=== PATIENT | male | born 1950 | race Caucasian/White ===

== ENCOUNTER 2017-02-26 18:46 | Inpatient (IN) | payer MEDICARE ==
[~2017-02-26] VITALS: Ht 167.6 cm; Wt 78.5 kg
--- NOTE | 2017-02-26 19:09 | NUR ---
PT BIBFAMILY C/O SUDDEN ONSET CHEST PAIN, PRESSURE LIKE, NON RADIATING X 20 MINS. PT AOX3 RR EVEN AND UNLABORED. NO SOB NOTED. NAD NOTED. NO NVD AT THIS TIME. PT GOWNED AND PLACED ON MONTIOR. PT WAITING FOR MD MO. IV STARTED ON LEFT AC 18G, GOOD BLOOD RETURNED, BLOOD COLLECTED. SENT TO LAB.
--- NOTE | 2017-02-26 19:10 | NUR ---
PT DENIES CP AT THIS TIME.
[2017-02-26 19:23] LABS: BASOPHILS # (AUTO) 0.1 /CMM (0.0-0.2); BASOPHILS % (AUTO) 1.2 % (0.0-2.0); EOSINOPHILS # (AUTO) 0.3 /CMM (0.0-0.7); HEMATOCRIT 44 % (39-51); HEMOGLOBIN 14.7 g/dL (13.5-17.5); LYMPHOCYTES # (AUTO) 1.9 /CMM (0.8-4.8); LYMPHOCYTES % (AUTO) 28.8 % (20.0-44.0); MEAN CORPUSCULAR HEMOGLOBIN 32 PG (26.0-33.0); MEAN CORPUSCULAR HGB CONC 34 g/dl (31.0-36.0); MEAN CORPUSCULAR VOLUME 94 fL (80-96); MONOCYTES # (AUTO) 0.7 /CMM (0.1-1.30); MONOCYTES % (AUTO) 11.3 % (2.0-12.0); NEUTROPHILS # (AUTO) 3.4 /CMM (1.8-8.9); NEUTROPHILS % (AUTO) 54.7 % (43.0-81.0); PLATELET COUNT (AUTO) 190 /CMM (150-450); RDW COEFFICIENT OF VARIATION 12.5 (11.5-15.0); RED BLOOD CELL COUNT(AUTO) 4.67 MIL/uL (4.5-6.0); WHITE BLOOD COUNT (AUTO) 6.4 K/uL (4.3-11.0)
--- NOTE | 2017-02-26 19:26 | NUR ---
RADIOLOGY AT BEDSIDE FOR CXR
--- NOTE | 2017-02-26 19:32 | NUR ---
DR. STREET AT BEDSIDE FOR EVAL.
[2017-02-26 19:43] LABS: TROPONIN I 0.017 ng/mL (0.00-0.056)
--- NOTE | 2017-02-26 19:46 | NUR ---
CALLED NURSING SUP. FOR TELE BED
--- NOTE | 2017-02-26 19:46 | NUR ---
JANES MORALES, VALERIE DOBBS NP CERTIFIED ETHICAL HACKER
[2017-02-26 19:47] LABS: INR 0.89 (0.87-1.13); PROTHROMBIN TIME 9.3 SECS (9.5-12.7)
[2017-02-26 19:48] LABS: ALBUMIN 3.6 g/dL (3.4-5.0); BILIRUBIN,TOTAL 0.3 mg/dL (0.2-1.0); CALCIUM, SERUM 9.3 mg/dL (8.5-10.1); CREATININE 1.2 mg/dL (0.6-1.3); TOTAL PROTEIN, SERUM 7.6 g/dL (6.4-8.2)
[2017-02-26] MEDS ORDERED: ASPIRIN 81 MG TAB.CHEW ONE (19:48)
[2017-02-26] MEDS ORDERED: ASPIRIN 81 MG TAB.CHEW PO ONE (20:00)
--- NOTE | 2017-02-26 20:03 | NUR ---
PT ASSIGNED TO TELE 110
--- NOTE | 2017-02-26 20:18 | NUR ---
REPORT GIVEN TO SADIA BAUTISTA FOR ANGELICA
[2017-02-26] MEDS ORDERED: AZIL40TA PO (20:24)
[2017-02-26] MEDS ORDERED: DAPA10TA PO (20:24)
[2017-02-26] MEDS ORDERED: METO50TA3 PO (20:24)
[2017-02-26] MEDS ORDERED: [UNRECOGNIZED DRUG - CODE] PO (20:24)
[2017-02-26] MEDS ORDERED: RIVA10TA PO (20:24)
[2017-02-26] MEDS ORDERED: EZET1TAB7 PO (20:24)
[2017-02-26] MEDS ORDERED: MECLIZINE HCL 12.5 MG TABLET ONE (20:40)
[2017-02-26] MEDS ORDERED: MECLIZINE HCL 12.5 MG TABLET PO ONE (21:00)
[2017-02-26 21:15] VITALS: BP 123/99
--- NOTE | 2017-02-26 21:17 | NUR ---
PT TRANSFERRED PER ACLS PROTOCOL
--- NOTE | 2017-02-26 21:20 | NUR ---
MACHINE BOSS RCD PT FROM ER DX CHEST PAIN; PT AFIB ON MONITOR; ON ROOM AIR CLEAR BREATH SOUNDS. SKIN INTACT. PT DENIES CHEST PAIN OR DIZZINESS AT THIS TIME. FAMILY AT BEDSIDE. PENDING ADMISSION ORDERS.
--- NOTE | 2017-02-26 22:20 | NUR ---
POCKET GRINDER OPERATOR CALL PLACED TO [facility] FOR ADMISSION ORDERS.
[2017-02-26] MEDS ORDERED: ACETAMINOPHEN 325 MG TABLET PO PRN (22:30)
[2017-02-26] MEDS ORDERED: Z GUARD REMEDY 2 OZ OINT TP PRN (22:30)
[2017-02-26] MEDS ORDERED: MAGNESIUM HYDROXIDE 30 ML UDC PO PRN (22:30)
[2017-02-26] MEDS ORDERED: ZOLPIDEM TARTRATE 5 MG TABLET PO PRN (22:30)
[2017-02-26] MEDS ORDERED: DEXTROSE 50%-WATER 50 ML DISP.SYRIN IV PRN (22:30)
[2017-02-26] MEDS ORDERED: HYDROCODONE/APAP 5/325MG 1 EACH TABLET PO PRN (22:30)
[2017-02-26] MEDS ORDERED: ONDANSETRON HCL/PF 4 MG/2 ML VIAL IVP PRN (22:30)
--- NOTE | 2017-02-26 22:35 | NUR ---
DIE CASTING MACHINE SETTER RCD ADMISSION ORDERS; DISCUSSED PLAN OF CARE WITH PT; VERBALIZES UNDERSTANDING. CONTINUE TO MONITOR.
[2017-02-27] VITALS (7 sets, daily range): BP systolic 104–120; BP diastolic 64–89
--- NOTE | 2017-02-27 | NUR ---
ESCALATOR MECHANIC PT SLEEPING AT THIS TIME; FAMILY REMAINS AT BEDSIDE.
--- NOTE | 2017-02-27 02:00 | NUR ---
REHAB LIAISON PT YAEL CHEST PAIN OR DIZZINESS; CONTINUE TO MONITOR.
--- NOTE | 2017-02-27 03:44 | NUR ---
ROLLED HAM LACER ASSISTED PT TO RESTROOM; DENIES DIZZINESS OR CHEST PAIN. CONTINUE TO MONITOR.
--- NOTE | 2017-02-27 07:45 | NUR ---
Tele/RN - Initial Notes Received pt in bed, alert and oriented x4. Denies chest pain. Denies pain or discomfort. Denies dizziness at this time. Afib 68 on tele monitor. IV saline locked patent and intact. Ambulatory with steady gait. Safety and comfort measures in place. Will continue to monitor pt closely.
[2017-02-27 07:47] LABS: BASOPHILS % (AUTO) 0.7 % (0.0-2.0); EOSINOPHILS # (AUTO) 0.3 /CMM (0.0-0.7); HEMATOCRIT 42 % (39-51); HEMOGLOBIN 13.8 g/dL (13.5-17.5); LYMPHOCYTES # (AUTO) 1.9 /CMM (0.8-4.8); MEAN CORPUSCULAR HEMOGLOBIN 31 PG (26.0-33.0); MEAN CORPUSCULAR HGB CONC 33 g/dl (31.0-36.0); MEAN CORPUSCULAR VOLUME 95 fL (80-96); MONOCYTES # (AUTO) 0.8 /CMM (0.1-1.30); MONOCYTES % (AUTO) 11.3 % (2.0-12.0); NEUTROPHILS # (AUTO) 3.6 /CMM (1.8-8.9); PLATELET COUNT (AUTO) 160 /CMM (150-450); RDW COEFFICIENT OF VARIATION 13.1 (11.5-15.0); RED BLOOD CELL COUNT(AUTO) 4.41 MIL/uL (4.5-6.0); WHITE BLOOD COUNT (AUTO) 6.7 K/uL (4.3-11.0)
[2017-02-27 07:57] LABS: CALCIUM, SERUM 8.5 mg/dL (8.5-10.1); PHOSPHORUS 3.4 mg/dL (2.5-4.9); POTASSIUM 3.9 mmol/L (3.5-5.1)
--- NOTE | 2017-02-27 08:10 | NUR ---
Tele/RN - Notes Pt seen and examined by Dr Benoit at bedside.
[2017-02-27] MEDS: BLOOD SUGAR DIAGNOSTIC 1 EACH STRIP IN SCH ×4 (08:17→22:11)
[2017-02-27] MEDS: INSULIN REGULAR, HUMAN 100 UNIT/ML 3 ML VIAL SQ PRN ×4 (08:21→22:11)
[2017-02-27] MEDS: LOSARTAN POTASSIUM 50 MG TABLET PO SCH (09:18)
[2017-02-27] MEDS: ASPIRIN 81 MG TAB.CHEW PO SCH (09:18)
--- NOTE | 2017-02-27 10:50 | NUR ---
Tele/RN - Notes Stroke teaching and NIH Stroke Scale, and swallow screening completed at bedside. Pt able to swallow with no issues. Examined by Dr Barton at bedside. MD aware of negative findings.
--- NOTE | 2017-02-27 12:10 | NUR ---
Tele/RN - Notes Pt's Cardiology report obtained and placed in chart.
--- NOTE | 2017-02-27 12:20 | NUR ---
Tele/RN - Notes Per pt's son, Pt does not take Azilsartan Medoxomil (Edarbi) anymore. Will notify Pharmacy.
--- NOTE | 2017-02-27 14:05 | NUR ---
Tele/RN - Notes Pt seen and examined by Dr Lomax at bedside.
[2017-02-27] MEDS ORDERED: RIVAROXABAN 10 MG TABLET PO SCH (17:00)
--- NOTE | 2017-02-27 19:15 | NUR ---
RN INITIAL NOTES RECEIVED PATIENT AWAKE AND ALERT X4. PATIENT DENIES ANY PAIN AND DISCOMFORT. ON ROOM AIR WITH NO DISTRESS. PATIENT SR WITH 1ST DEGREE AVB AND OCCASIONAL PVC WITH HR OF 78. PER PIANO REGULATOR, PATIENT CONVERTED AT 1820 FROM AFIB. PATIENT WITH NO WEAKNESS NOTED, CLEAR SPEECH, NO DIFFICULTY SWALLOWING OBSERVED, WITH STEADY GAIT NOTED. PATIENT'S NEEDS ANTICIPATED AND MET. SAFETY AND COMFORT ENSURED. BED IN LOW AND LOCKED POSITION. CALL LIGHT IN REACH. WILL MONITOR.
[2017-02-27] MEDS ORDERED: AZIL40TA PO (21:01)
[2017-02-27] MEDS ORDERED: SAXA5TAB PO (21:01)
[2017-02-27] MEDS ORDERED: METOPROLOL TARTRATE 50 MG TABLET PO SCH (22:00)
[2017-02-27] MEDS ORDERED: CHOLECALCIFEROL 1,000 UNIT TABLET (VIT D3) PO SCH (22:00)
[2017-02-27] MEDS ORDERED: ATORVASTATIN 10 MG TABLET PO SCH (22:00)
[2017-02-28] VITALS: BP 120/80
[2017-02-28 04:00] VITALS: BP 120/82
--- NOTE | 2017-02-28 05:18 | NUR ---
RN NOTES PATIENT'S DAUGHTER AT BEDSIDE AND BROUGHT IN PATIENT'S MEDICATIONS FROM HOME. MEDICATIONS REVIEWED WITH THE CURRENT MEDICATION RECONCILIATION FILED IN CHART. AMONGST THE MEDICATION BOTTLES BROUGHT IN ARE: Onglyza 2.5mg Daily, and Azilsartan Medoximil 40mg every evening with medication instruction to STOP when taking Cozaar and/or Norvasc. UPDATED MEDICATION RECONCILIATION ON [facility]. WILL ENDORSE ACCORDINGLY FOR F/UP.
--- NOTE | 2017-02-28 07:30 | NUR ---
RN NOTES RECEIVED PATIENT RESTING IN BED, AROUSABLE TO VERBAL AND TACTILE STIMULI. ALERT ORIENTED X4. ON RA ELPIDIO WELL. PATIENT DENIES ANY PAIN AND DISCOMFORT. NO DISTRESS NOTED. PATIENT SR WITH 1ST DEGREE AVB OCCASIONAL PVC ON TELE MONITOR. NO FACIAL DROOP, NO WEAKNESS NOTED, SPEECH IS CLEAR, ABLE TO MOVE ALL EXTREMITIES. PATIENT'S NEEDS ATTENDED. PLAN OF CARE DISCUSSED WITH PT, SAFETY AND COMFORT ENSURED. BED IN LOW AND LOCKED POSITION. CALL LIGHT IN REACH. WILL MONITOR.
[2017-02-28 07:48] LABS: BASOPHILS % (AUTO) 0.4 % (0.0-2.0); EOSINOPHILS # (AUTO) 0.4 /CMM (0.0-0.7); HEMATOCRIT 41 % (39-51); HEMOGLOBIN 13.8 g/dL (13.5-17.5); LYMPHOCYTES # (AUTO) 1.7 /CMM (0.8-4.8); MEAN CORPUSCULAR HEMOGLOBIN 32 PG (26.0-33.0); MEAN CORPUSCULAR HGB CONC 34 g/dl (31.0-36.0); MEAN CORPUSCULAR VOLUME 93 fL (80-96); MONOCYTES # (AUTO) 0.8 /CMM (0.1-1.30); MONOCYTES % (AUTO) 12.4 % (2.0-12.0); NEUTROPHILS # (AUTO) 3.3 /CMM (1.8-8.9); NEUTROPHILS % (AUTO) 53.2 % (43.0-81.0); PLATELET COUNT (AUTO) 172 /CMM (150-450); RED BLOOD CELL COUNT(AUTO) 4.39 MIL/uL (4.5-6.0); WHITE BLOOD COUNT (AUTO) 6.1 K/uL (4.3-11.0)
[2017-02-28 08:00] VITALS: BP 106/74
[2017-02-28 08:12] LABS: CALCIUM, SERUM 8.3 mg/dL (8.5-10.1); CREATININE 0.9 mg/dL (0.6-1.3); MAGNESIUM 1.7 mg/dL (1.8-2.4); PHOSPHORUS 3.4 mg/dL (2.5-4.9); POTASSIUM 4.1 mmol/L (3.5-5.1)
--- NOTE | 2017-02-28 08:30 | NUR ---
RN NOTES STROKE EDUCATION GIVEN. PT VERBALIZED UNDERSTANDING
[2017-02-28] MEDS: ASPIRIN 81 MG TAB.CHEW PO SCH (09:07)
[2017-02-28] MEDS: LOSARTAN POTASSIUM 50 MG TABLET PO SCH (09:07)
[2017-02-28] MEDS: INSULIN REGULAR, HUMAN 100 UNIT/ML 3 ML VIAL SQ PRN ×2 (09:12→12:45)
[2017-02-28] MEDS: BLOOD SUGAR DIAGNOSTIC 1 EACH STRIP IN SCH ×2 (09:12→12:29)
[2017-02-28] MEDS ORDERED: MAGNESIUM OXIDE 400 MG TABLET PO ONE (11:30)
[2017-02-28 12:00] VITALS: BP 107/75
[2017-02-28] MEDS ORDERED: APIX5TAB PO (12:32)
[2017-02-28] MEDS ORDERED: GLIP5TAB26 PO (12:32)
[2017-02-28] MEDS ORDERED: METF100P3 MC (12:32)
--- NOTE | 2017-02-28 12:50 | NUR ---
RN NOTES DR DONOVAN AT BEDSIDE, PER MD PT CAN GO HOME TODAY AND SHE WILL PRESCRIBED SOME NEW MEDS.
--- NOTE | 2017-02-28 14:55 | NUR ---
RN NOTES PT DISCHARGED FROM UNIT IN STABLE CONDITION, PT ABLE TO AMBULATE WITHOUT ASSISTANCE, ACCOMPANIED BY FAMILY MEMBER TRANSPORTED TO HOME VIA PRIVATE CAR. ALL DISCHARGE INSTRUCTIONS GIVEN, EXITCARE PROVIDED. PRESCRIPTIONS GIVEN. PT REMINDED OF THE SCHEDULED FOLLOW UP APPOINTMENTS WITH MD, PT VERBALIZED UNDERSTANDING. PRESCRIPTION FA[facility]ED TO [facility] PER PT REQUEST. PAPERWORK SIGNED BY PT, COPIES PROVIDED. ID BAND REMOVED, IV SITE REMOVED, COVERED WITH DRY DRESSING, NOTED WITH SWELLING, WARM COMPRESS APPLIED. ALL BELONGINGS SENT WITH THE PT.
== END 2017-02-28 14:49 | disposition home health service (06) | DRG 69 ==
LOC: ER 18:48 → EDBD 18:48 → TELE1 20:34
PROVIDERS: ADMIT Nurse Practitioner Acute Care; ATTEND Nurse Practitioner Acute Care
DX: G45.9 Transient cerebral ischemic attack, unspecified (principal); I50.33 Acute on chronic diastolic (congestive) heart failure; D68.59 Other primary thrombophilia; I48.0 Paroxysmal atrial fibrillation; E11.65 Type 2 diabetes mellitus with hyperglycemia; I11.0 Hypertensive heart disease with heart failure; E78.5 Hyperlipidemia, unspecified
CPT/HCPCS: 36415; 70450-TC; 71010-TC; 80048-TC; 80061-TC; 80076-TC; 82962-TC; 83735-TC; 83880; 84100-TC; 84484-TC; 85025-TC; 85730-TC; 87081-TC; 92521; 93307-TC; 93880-TC; A4606; A6403; J1815; J8597; Z7610

== ENCOUNTER 2017-03-05 19:57 | Inpatient (IN) | payer MEDICARE ==
[~2017-03-05] VITALS: Ht 167.6 cm; Wt 75.7 kg
[~2017-03-05 19:57] MED LIST: APIX5TAB PO; AZIL40TA PO; DAPA10TA PO; EZET1TAB7 PO; GLIP5TAB26 PO; METF100P3 MC; METO50TA3 PO; SAXA5TAB PO; [UNRECOGNIZED DRUG - CODE] PO
--- NOTE | 2017-03-05 20:20 | NUR ---
PT A/OX4 BREATHING EFFORTLESSLY ON ROOM AIR, PT STATES HE STARTED TO HAVE NUMBNESS ON HIS LEFT ARM AND LEG SINCE YESTERDAY EVENING, PT IS AT BEDSIDE, IV PLACED, PT ON MONITOR, IN GOWN, NAD NOTED, MD JHOAN MADE AWARE, PT AT BEDSIDE WILL CONTINUE TO MONITOR.
[2017-03-05 20:31] LABS: BASOPHILS % (AUTO) 0.6 % (0.0-2.0); EOSINOPHILS # (AUTO) 0.3 /CMM (0.0-0.7); EOSINOPHILS % (AUTO) 4.5 % (0.0-6.0); HEMATOCRIT 44 % (39-51); HEMOGLOBIN 14.8 g/dL (13.5-17.5); LYMPHOCYTES # (AUTO) 1.9 /CMM (0.8-4.8); LYMPHOCYTES % (AUTO) 27.3 % (20.0-44.0); MEAN CORPUSCULAR HEMOGLOBIN 31 PG (26.0-33.0); MEAN CORPUSCULAR HGB CONC 34 g/dl (31.0-36.0); MEAN CORPUSCULAR VOLUME 93 fL (80-96); MONOCYTES # (AUTO) 0.9 /CMM (0.1-1.30); MONOCYTES % (AUTO) 12.4 % (2.0-12.0); NEUTROPHILS # (AUTO) 3.8 /CMM (1.8-8.9); NEUTROPHILS % (AUTO) 55.2 % (43.0-81.0); PLATELET COUNT (AUTO) 187 /CMM (150-450); RED BLOOD CELL COUNT(AUTO) 4.72 MIL/uL (4.5-6.0); WHITE BLOOD COUNT (AUTO) 6.9 K/uL (4.3-11.0)
[2017-03-05 20:45] LABS: CALCIUM, SERUM 9.1 mg/dL (8.5-10.1); POTASSIUM 3.9 mmol/L (3.5-5.1)
[2017-03-05 20:48] LABS: INR 0.9 (0.87-1.13); PROTHROMBIN TIME 9.4 SECS (9.5-12.7)
[2017-03-05 20:53] LABS: TROPONIN I 0.018 ng/mL (0.00-0.056)
--- NOTE | 2017-03-05 21:11 | NUR ---
PAGED DR AYALA FOR PANEL ADMISSION
[2017-03-05] MEDS ORDERED: ASPIRIN 325 MG TABLET PO ONE (21:30)
[2017-03-05] MEDS ORDERED: ONDANSETRON HCL/PF 4 MG/2 ML VIAL IVP PRN (21:30)
[2017-03-05] MEDS ORDERED: HYDROCODONE/APAP 5/325MG 1 EACH TABLET PO PRN (21:30)
[2017-03-05] MEDS ORDERED: MAG HYDROX/AL HYDROX/SIMETH 30 ML UDC PO PRN (21:30)
[2017-03-05] MEDS ORDERED: ACETAMINOPHEN 325 MG TABLET PO PRN (21:30)
[2017-03-05] MEDS ORDERED: Z GUARD REMEDY 2 OZ OINT TP PRN (21:30)
[2017-03-05] MEDS ORDERED: MAGNESIUM HYDROXIDE 30 ML UDC PO PRN (21:30)
[2017-03-05] MEDS ORDERED: ENOXAPARIN SODIUM 40 MG/0.4 ML DISP.SYRIN SQ SCH (21:30)
[2017-03-05] MEDS ORDERED: *INSULIN REGULAR(HUMULIN R)HUM 100 UNIT/ML VIAL SQ PRN (21:30)
[2017-03-05] MEDS ORDERED: DEXTROSE 50%-WATER 50 ML DISP.SYRIN IV PRN (21:30)
[2017-03-05] MEDS ORDERED: MORPHINE SULFATE INJ 2 MG/ML DISP.SYRIN IV PRN (21:30)
[2017-03-05] MEDS ORDERED: ZOLPIDEM TARTRATE 5 MG TABLET PO PRN (21:30)
[2017-03-05] MEDS ORDERED: ASPIRIN 325 MG TABLET ONE (21:59)
[2017-03-05 22:00] VITALS: BP 139/84
[2017-03-05] MEDS ORDERED: Medication Not On Formulary EA (Ezetimibe/Simvastatin (Vytorin 10-40 Mg Tablet) 1 TAB) PO SCH (22:00)
[2017-03-05 22:05] VITALS: BP 139/84
--- NOTE | 2017-03-05 22:30 | NUR ---
RIGHT OF WAY APPRAISER INITIAL NOTE PT RECEIVED IN NO ACUTE DISTRESS AT THIS MOMENT. A/O X4 AND ABLE TO MAKE NEEDS KNOWN. ON TELE WITH SR W/ PVC'S AT THE MOMENT. FAMILY IS AT BEDSIDE. PT HAS ADEQUATE BREATHING PATTERN WITH NORMAL CHEST RISE/FALL. LUNG SOUNDS ARE CLEAR. PT IS ABLE TO WALK TO BATHROOM WITH STANDBY ASSISTANCE. 18G RIGHT HAND IS PATENT CLEAN AND DRY. COMFORT AND SAFETY MEASURES TO BE PLACED DURING THE SHIFT. WILL CONTINUE TO MONITOR FOR ANY CHANGES DURING THE SHIFT.
[2017-03-05] MEDS: BLOOD SUGAR DIAGNOSTIC 1 EACH STRIP VI SCH (22:42)
[2017-03-05] MEDS ORDERED: ENOXAPARIN SODIUM 40 MG/0.4 ML DISP.SYRIN SQ ONE (22:44)
[2017-03-05] MEDS ORDERED: METOPROLOL TARTRATE 50 MG TABLET ONE (22:45)
[2017-03-05] MEDS: INSULIN REGULAR, HUMAN 100 UNIT/ML 3 ML VIAL SQ PRN (22:46)
[2017-03-05] MEDS: METOPROLOL TARTRATE 50 MG TABLET PO SCH (22:47)
[2017-03-06] VITALS (9 sets, daily range): BP systolic 96–154; BP diastolic 65–90
[2017-03-06 03:46] LABS: BASOPHILS % (AUTO) 0.4 % (0.0-2.0); EOSINOPHILS # (AUTO) 0.4 /CMM (0.0-0.7); EOSINOPHILS % (AUTO) 5.2 % (0.0-6.0); HEMATOCRIT 42 % (39-51); HEMOGLOBIN 13.9 g/dL (13.5-17.5); LYMPHOCYTES # (AUTO) 1.9 /CMM (0.8-4.8); MEAN CORPUSCULAR HEMOGLOBIN 31 PG (26.0-33.0); MEAN CORPUSCULAR HGB CONC 33 g/dl (31.0-36.0); MEAN CORPUSCULAR VOLUME 94 fL (80-96); MONOCYTES # (AUTO) 0.9 /CMM (0.1-1.30); MONOCYTES % (AUTO) 12.7 % (2.0-12.0); NEUTROPHILS # (AUTO) 4.1 /CMM (1.8-8.9); NEUTROPHILS % (AUTO) 55.7 % (43.0-81.0); PLATELET COUNT (AUTO) 180 /CMM (150-450); RED BLOOD CELL COUNT(AUTO) 4.49 MIL/uL (4.5-6.0); WHITE BLOOD COUNT (AUTO) 7.4 K/uL (4.3-11.0)
[2017-03-06 04:00] LABS: MAGNESIUM 2.1 mg/dL (1.8-2.4); PHOSPHORUS 3.6 mg/dL (2.5-4.9); POTASSIUM 4.1 mmol/L (3.5-5.1)
--- NOTE | 2017-03-06 05:41 | NUR ---
BONE DRIER OPERATOR CLOSING NOTE PT REMAINS IN NO ACUTE DISTRESS AT THIS TIME. FAMILY AT BEDSIDE OVER NIGHT. NO CHEST PAIN REPORTED DURING THE SHIFT. PT ABLE TO GET UP TO GO TO RESTROOM WITH STANDBY ASSISTANCE. ALL DUE MEDICATIONS GIVEN ORDERED AND TOLERATED WELL. COMFORT AND SAFETY MEASURES CARRIED OUT DURING THE SHIFT. WILL ENDORSE CARE TO AM NURSE.
[2017-03-06] MEDS: BLOOD SUGAR DIAGNOSTIC 1 EACH STRIP VI SCH ×2 (07:06→12:28)
[2017-03-06] MEDS: INSULIN REGULAR, HUMAN 100 UNIT/ML 3 ML VIAL SQ PRN ×2 (07:07→17:43)
--- NOTE | 2017-03-06 07:45 | NUR ---
Tele/RN - Notes Pt received awake and alert x4. Denies chest pain and/or pain at this time. Complains of dizziness. On tele reading 1st degree AV block with BBB 69. Continent. Ambulatory with steady gait. IV saline locked patent and intact. Safety and comfort measures in place. Will continue to monitor pt closely.
--- NOTE | 2017-03-06 08:15 | NUR ---
Tele/RN - Notes Dr Benoit at bedside for evaluation, with new orders received for CT Angiogram Heart, brain and carotid. Per Radiology, will do CTA heart today, and CTA brain and carotid tomorrow morning.
[2017-03-06] MEDS: DOCUSATE SODIUM 100 MG CAPSULE PO SCH ×2 (09:00→17:00)
[2017-03-06] MEDS ORDERED: APIXABAN 5 MG TABLET PO SCH (09:00)
[2017-03-06] MEDS ORDERED: ASPIRIN 325 MG TABLET PO SCH (09:00)
[2017-03-06] MEDS: PANTOPRAZOLE 40 MG TABLET.DR PO SCH (09:18)
--- NOTE | 2017-03-06 10:50 | NUR ---
Tele/RN - Notes Dr Lomax (Neurology) at bedside for evaluation. Received orders for IVF for pt's complaints of dizziness. MD also ordered MRI brain. Will carry out.
[2017-03-06] MEDS: IV NS 0.9% 1,000 ML IV PRN ×2 (11:00→22:20)
[2017-03-06] MEDS ORDERED: CT SWABBABLE VALVE TRANS SET 1 EA INFUS.SET MC ONE (11:15)
[2017-03-06] MEDS ORDERED: IOHEXOL-350 100 ML VIAL IV ONE (11:15)
[2017-03-06] MEDS ORDERED: IV NS 0.9% 250 ML IV ONE (11:15)
[2017-03-06] MEDS ORDERED: METOPROLOL TARTRATE INJ 5 MG/5 ML AMPUL IVP ONE (11:30)
[2017-03-06] MEDS ORDERED: NITROGLYCERIN 4.9 GM SPRAY SL ONE (11:30)
--- NOTE | 2017-03-06 11:30 | NUR ---
PT TO CT FOR CT ANGIO - CONSENT FORM SIGNED BY PT. PROTOCOL SHEET UTILIZED
--- NOTE | 2017-03-06 11:30 | NUR ---
ICU/RN - Notes Pt taken to radiology by wheelchair for CT Angiogram of heart via ACLS protocol, accompanied by SADIA Larsen and jose luis Maria. Metoprolol IVP and NGT [place] to be given by SADIA Larsen per CT Angiogram protocol.
--- NOTE | 2017-03-06 11:30 | NUR ---
HR 82- METOPROLOL 5 MG SIVP ADMINISTERED. VSS A DENIES CHEST PAIN/SOB, DYSPNEA. REPORTS HE IS COMFORTABLE. PROCEDURE EXPLAINED TO PT . ALL QUESTIONS ANSWERED.
[2017-03-06] MEDS ORDERED: METOPROLOL TARTRATE INJ 5 MG/5 ML AMPUL ONE (11:34)
--- NOTE | 2017-03-06 11:57 | NUR ---
PT IN CT , ON MONITOR. HR 62
--- NOTE | 2017-03-06 12:04 | NUR ---
PROCEDURE IN PROGRESS. CONT TO DENY ANY MEDICAL COMPLAINTS. AIRWAY PATENT. VSS. HR 61
--- NOTE | 2017-03-06 12:08 | NUR ---
NITROGLYCERIN 0.4 MG SL. ADMINSITERED.
--- NOTE | 2017-03-06 12:10 | NUR ---
PROCEDURE COMPLETED. VSS. PT STS " I FEEL A LITTLE BIT DIZZY". PT REMAINS IN CT BED PRIOR FOR MONITORING PRIOR TRANSFER BACK TO UNIT.
--- NOTE | 2017-03-06 12:23 | NUR ---
HEADPAIN RESOLVED- EXPLAINED TO PT POSSIBLE CAUSE D/T NTG. NO CONCERNS AT THIS TIME. BACK FROM CT. ON MONITOR.
--- NOTE | 2017-03-06 12:30 | NUR ---
Tele/RN - Notes Pt back from CT, reconnected to IVF for complaints of dizziness (Per Dr Lomax). Lunch offered, pt not hungry at this time. Awaiting MRI brain w/o contrast. at bedside.
--- NOTE | 2017-03-06 12:58 | NUR ---
Tele/RN - Notes Pt taken to MRI at this time.
--- NOTE | 2017-03-06 13:37 | NUR ---
Tele/RN - Notes Pt received back from MRI in stable condition.
--- NOTE | 2017-03-06 13:55 | NUR ---
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
--- NOTE | 2017-03-06 14:15 | NUR ---
Tele/RN - Notes Charge Nurse Audra made aware of abnormal Brain MRI result. Dr Calvo also paged by charge nurse to relay results.
[2017-03-06] MEDS ORDERED: ENOXAPARIN SODIUM 40 MG/0.4 ML DISP.SYRIN SQ SCH (14:30)
[2017-03-06 15:32] LABS: INR 0.99 (0.87-1.13); PROTHROMBIN TIME 10.3 SECS (9.5-12.7)
--- NOTE | 2017-03-06 16:20 | NUR ---
Tele/RN - Notes Dr Calvo at bedside for evaluation.
[2017-03-06] MEDS: BLOOD SUGAR DIAGNOSTIC 1 EACH STRIP IN SCH ×2 (17:29→22:23)
[2017-03-06] MEDS ORDERED: BLOOD SUGAR DIAGNOSTIC 1 EACH STRIP IN SCH (18:00)
--- NOTE | 2017-03-06 20:00 | NUR ---
LACQUER SHADER NOTES RECEIVED PT IN BED, AWAKE. A/O X4. FAMILY AT BEDSIDE. ON ROOM AIR, ELPIDIO WELL. TELE READS SR AT 75 BPM. SKIN INTACT, PT AMBULATORY AND BRP WITH STANDBY ASSIST. ON CONSISTENT CARB DIET. IV SITE AT RIGHT HAND 18G, RUNNING NS AT 75 ML/HR. PT DENIES HEADACHE, DIZZINESS. DENIES ANY LEFT SIDED WEAKNESS OR NUMBNESS. ALL NEEDS MET. SIDE RAILS X2. CALL LIGHT WITHIN REACH. NO PAIN AT THIS TIME. WILL CONTINUE TO MONITOR CLOSELY.
[2017-03-06] MEDS ORDERED: SIMVASTATIN 40 MG TABLET PO SCH (22:00)
[2017-03-06] MEDS ORDERED: EZETIMIBE 10 MG TABLET PO SCH (22:00)
[2017-03-06] MEDS: METOPROLOL TARTRATE 50 MG TABLET PO SCH (22:23)
--- NOTE | 2017-03-06 23:55 | NUR ---
OUTSIDE SALES PROFESSIONAL NOTES PT COMPLAINING OF HEADACHE, PAIN 5/10. BP CHECKED, 129/84. TYLENOL 650MG GIVEN.
[2017-03-07] VITALS (7 sets, daily range): BP systolic 121–131; BP diastolic 71–85
--- NOTE | 2017-03-07 07:00 | NUR ---
WOOL GROWER NOTE: RECEIVED PT AWAKE IN BED, A&OX4, DENIES PAIN. ON RA, RESPIRATIONS EVEN AND UNLABORED WITH NO SOB NOTED. ON TELE MONITOR WITH SR IN THE 70S. RH 18G INTACT AND PATENT WITH NS RUNNING AT 75CC/HR. NPO AWAITING CTA OF THE BRAIN AND CAROTID- CONSENT IN CHART. BED LOW, LOCKED, X2 SIDERAILS UP AND CALL LIGHT WITHIN REACH. WILL CONT TO MONITOR.
[2017-03-07] MEDS: PANTOPRAZOLE 40 MG TABLET.DR PO SCH (07:30)
[2017-03-07 07:42] LABS: BASOPHILS % (AUTO) 0.8 % (0.0-2.0); EOSINOPHILS # (AUTO) 0.4 /CMM (0.0-0.7); EOSINOPHILS % (AUTO) 6.2 % (0.0-6.0); HEMATOCRIT 39 % (39-51); HEMOGLOBIN 12.8 g/dL (13.5-17.5); LYMPHOCYTES % (AUTO) 31.7 % (20.0-44.0); MEAN CORPUSCULAR HEMOGLOBIN 31 PG (26.0-33.0); MEAN CORPUSCULAR HGB CONC 33 g/dl (31.0-36.0); MEAN CORPUSCULAR VOLUME 94 fL (80-96); MONOCYTES # (AUTO) 0.8 /CMM (0.1-1.30); MONOCYTES % (AUTO) 12.2 % (2.0-12.0); NEUTROPHILS # (AUTO) 3.1 /CMM (1.8-8.9); NEUTROPHILS % (AUTO) 49.1 % (43.0-81.0); PLATELET COUNT (AUTO) 148 /CMM (150-450); RDW COEFFICIENT OF VARIATION 12.8 (11.5-15.0); RED BLOOD CELL COUNT(AUTO) 4.14 MIL/uL (4.5-6.0); WHITE BLOOD COUNT (AUTO) 6.4 K/uL (4.3-11.0)
[2017-03-07 07:53] LABS: CALCIUM, SERUM 8.1 mg/dL (8.5-10.1); CREATININE 0.8 mg/dL (0.6-1.3); POTASSIUM 3.9 mmol/L (3.5-5.1)
[2017-03-07 07:55] LABS: INR 0.98 (0.87-1.13); PROTHROMBIN TIME 10.2 SECS (9.5-12.7)
[2017-03-07] MEDS: BLOOD SUGAR DIAGNOSTIC 1 EACH STRIP IN SCH ×3 (08:01→18:53)
[2017-03-07] MEDS: DOCUSATE SODIUM 100 MG CAPSULE PO SCH ×2 (08:04→17:00)
[2017-03-07] MEDS: INSULIN REGULAR, HUMAN 100 UNIT/ML 3 ML VIAL SQ PRN ×3 (08:31→18:58)
[2017-03-07] MEDS ORDERED: CT SWABBABLE VALVE TRANS SET 1 EA INFUS.SET MC ONE (08:37)
[2017-03-07] MEDS ORDERED: IV NS 0.9% 250 ML IV ONE (08:37)
[2017-03-07] MEDS ORDERED: IOHEXOL-350 100 ML VIAL IV ONE (08:37)
--- NOTE | 2017-03-07 14:01 | NUR ---
Social service consult requested by Dr. Calvo for possible stroke. Pt. is a 67 year old male who resides at home with his family. Pt. is alert and oriented x 3. Pt. has good family support at home and would like to return home. Pt. will be evaluated for PT/OT. Pt. is independent with his ADL's. No social service needs are requested at this time. SW is available if needed. Pt's son is Niko Wood and can be reached at .
--- NOTE | 2017-03-07 19:00 | NUR ---
PIN ATTACHER NOTE: PATIENT AMA AT 1600 AND AWAITING RIDE HOME. AMA FORM AND BELONGINGS LIST SIGNED. BELONGINGS AND HOME MEDICATION RETURNED. ROTARY FURNACE TENDER AT BEDSIDE. STROKE EDUCATION WITH S/S PROVIDED- PATIENT VERBALLY UNDERSTOOD. F/UP WITH PCP DR. COLLEEN GARCIA SCHEDULED FOR TOMORROW 03/08/17 AT 7:30PM. ADVISED TO SEEK MEDICAL HELP IN CASE OF EMERGENCY, CONTINUE MEDICATIONS PRESCRIBED AND DIET ADVISED. ORDERS CARRIED OUT. WILL ENDORSE TO SENIOR LIVING SALES COUNSELOR NURSE FOR ANGELICA.
--- NOTE | 2017-03-07 19:45 | NUR ---
SALES AND SERVICE OFFICER NOTES PATIENT LEAVING AMA WITH ALL DOCUMENTS SIGNED. AND GRANDDAUGHTER AT BEDSIDE. PATIENT STATES HE'S FEELING MUCH BETTER AND WOULD LIKE TO GO HOME. PROVIDED TEACHING ABOUT STROKE AND WHAT SIGNS TO LOOK FOR AND WHAT INTERVENTIONS TO TAKE IF THERE IS SIGNS OF STROKE. PROVIDED TEACHING ABOUT DIET AND EXERCISE. PATIENT AND FAMILY VERBALIZED UNDERSTANDING. IV REMOVED, PRESSURE DRESSING APPLIED, ID BAND REMOVED. ALL BELONGINGS WITH PATIENT. BELONGINGS LIST SIGNED. PATIENT IN STABLE CONDITION. ABLE TO WALK WITH NO DIFFICULTY. DENIES PAIN OR DISCOMFORT. DENIES SOB, DENIES N/V.
[2017-03-08] MEDS ORDERED: ASPIRIN EC 325 MG TABLET.DR PO SCH (09:00)
== END 2017-03-07 20:45 | disposition left against medical advice (07) | DRG 66 ==
LOC: ER 19:59 → TELE1 21:47
PROVIDERS: ADMIT Internal Medicine; ATTEND Internal Medicine
DX: I63.9 Cerebral infarction, unspecified (principal); E11.65 Type 2 diabetes mellitus with hyperglycemia; I11.0 Hypertensive heart disease with heart failure; I50.9 Heart failure, unspecified; I48.91 Unspecified atrial fibrillation; E78.5 Hyperlipidemia, unspecified; G83.14 Monoplegia of lower limb affecting left nondominant side; R07.9 Chest pain, unspecified; Z79.01 Long term (current) use of anticoagulants; Z91.19 Patient's noncompliance with other medical treatment and regimen; R53.1 Weakness; R29.701 NIHSS score 1
CPT/HCPCS: 36415; 70450-TC; 70496-TC; 70498-TC; 70551-TC; 71010-TC; 75574; 80048-TC; 80061-TC; 80305; 82962-TC; 83735-TC; 83880; 84100-TC; 84484-TC; 85025-TC; 85652-TC; 85730-TC; 87081-TC; 92611-TC; A4606; J1650; J1815; J3490; J7030; J7050; Q9967; Z7610